=== PATIENT | male | born 1965 | race Caucasian/White ===

== ENCOUNTER 2019-03-29 09:10 | Day surgery (SDC) | payer BC ==
[2019-03-28 10:37] VITALS: BMI 46.2
[2019-03-29] MEDS ORDERED: Lidocaine 1% PF 5 ML VIAL ONE (11:25)
[2019-03-29] MEDS ORDERED: PROPOFOL 200 MG/20 ML VIAL ONE (11:25)
--- NOTE | 2019-03-29 11:33 | OP ---
DATE OF PROCEDURE: 03/29/2019 PRIMARY CARE PHYSICIAN: Barrett Vazquez MD GENERAL PRODUCTION MANAGER SURGEON: None. PROCEDURE PERFORMED: Screening colonoscopy. INDICATION: A 53-year-old man, here for first average risk colon cancer screening exam. MEDICATIONS: See Anesthesia record. FINDINGS: After discussion of the risks, benefits, and alternatives of the procedure, informed consent was obtained and witnessed. Pre-endoscopic cardiopulmonary examination was satisfactory. Time-out was performed before sedation was achieved. Sedation was achieved with Anesthesia assistance in the endoscopy unit. Digital rectal exam was performed, which demonstrated some external hemorrhoids. A Pentax adult colonoscope was inserted into the anus and passed forward to the cecum in the usual fashion. The cecal base was identified by the appendiceal orifice as well as the ileocecal valve. The terminal ileum was intubated and the ileal mucosa appeared normal. The colonoscope was slowly withdrawn in a gradual and circumferential manner with careful examination of the entire colonic mucosa. The quality of the prep was good. The colonic mucosa appeared normal throughout. There was no evidence of any polyps or any other mucosal abnormalities. Retroflexion in the rectum was unremarkable. The colonoscope was completely withdrawn and the patient allowed to recover. The patient tolerated the procedure well. There were no immediate postprocedure complications. IMPRESSION: 1. External hemorrhoids. 2. Otherwise, normal colonoscopy to the terminal ileum. RECOMMENDATIONS: Repeat colonoscopy for screening in 10 years. Job ID: [id number]
== END 2019-03-29 11:35 | disposition home or self-care (01) ==
LOC: SDC 09:10
PROC: 0DJD8ZZ Inspection of Lower Intestinal Tract, Via Natural or Artificial Opening Endoscopic (ICD-10-PCS; principal; 2019-03-29)
DX: Z12.11 Encounter for screening for malignant neoplasm of colon (principal); K64.4 Residual hemorrhoidal skin tags; I10 Essential (primary) hypertension; E78.5 Hyperlipidemia, unspecified; G47.30 Sleep apnea, unspecified; Z79.899 Other long term (current) drug therapy
CPT/HCPCS: J2001; J2704